=== PATIENT | male | born 1990 | race Caucasian/White ===

== ENCOUNTER 2020-05-23 16:22 | Outpatient (REF) | payer OTHER, SELFPAY | END 2020-05-23 16:23 | disposition home or self-care (01) | LOC: HO.LAB 16:22 | PROVIDERS: PCP Internal Medicine; Visit Provider Internal Medicine | DX: Z20.828 Contact with and (suspected) exposure to other viral communicable diseases (principal) | CPT/HCPCS: U0003 ==

== ENCOUNTER 2023-03-17 16:01 | Outpatient (AMB) | payer OTHER, SELFPAY ==
[2023-03-17 16:05] VITALS: BP 130/80; PULSE 80; TEMP 36.9; O2SAT 96; BMI 39.3
--- NOTE | 2023-03-17 16:05 | AM.OFFWIN_ITS ---
Intake Vital Signs 03/17/23 16:05 Height 5 ft 10 in Weight 274 lb BMI 39.3 BP 130/80 Blood Pressure Location Rt brachial Position Sitting Pulse 80 Pulse Source Pulse Oximeter Temp 98.4 F Temp Source Temporal Artery Scan Pulse Oximetry (%) 96 Oxygen Delivery Method Room Air Intake Visit Reasons: [employer] Bilateral Ear pain Intake Note: Patient here for bilat ear pain/pressure that started this morning. Patient Tobacco Use Status: Current everyday Tobacco user Allergies No Known Allergies Allergy (Unverified 03/18/23 14:48) Medication List - Last Reconciled 03/18/23 by Brian Wong MD azithromycin (Zithromax) take 500 mg today (day 1), then 250 mg for 4 days (days 2-5) PO nbgxuevd-[id number]-JG 3.5-10,000-1 mg/mL-unit/mL-% 4 drps otic (ears) Q8H Do you need a note to return to daycare/school/sports/work: No HPI [employer] Bilateral Ear pain HPI Details Patient presents for a sick visit. Reporting symptoms of sinus congestion, sore throat and difficulty swallowing. Low-grade fever. No family member is sick. No recent travel. Patient reports symptoms of malaise and fatigue. PFSH Social History Patient Tobacco Use Status: Current everyday Tobacco user Physical Exam Vital Signs: Last Vital Signs Temp 98.4 F 03/17/23 16:05 Pulse 80 03/17/23 16:05 BP 130/80 03/17/23 16:05 Pulse Ox 96 03/17/23 16:05 Oxygen Delivery Method Room Air 03/17/23 16:05 BMI result Body Mass Index 39.3 Const General: cooperative and healthy appearing Nutritional Appearance: well nourished Orientation/consciousness: patient oriented x3 Limitations: no limitations HEENT Other: Right ear: Tympanic membrane is red, ear canal is congested. Head: Yes normal to inspection Eyes General: appearance normal, both eyes and all related structures Neck Neck: Yes normal visual inspection Chest Chest palpation & inspection: normal palpation of entire chest wall Resp Effort & Inspection: normal respiratory effort Neuro General: patient oriented x3 Assessment & Plan Assessment & Plan (1) Right otitis media: Code(s): H66.91 - Otitis media, unspecified, right ear Plan: Antibiotics ordered. Increase fluid intake. Tylenol for aches and pains. If symptoms worsen, follow-up here for a recheck. Medications: New clxhiwaf-oewwnkxiw-VX 3.5-10,000-1 mg/mL-unit/mL-% 4 drps otic (ears) Q8H 10 mL 0RF azithromycin (Zithromax) take 500 mg today (day 1), then 250 mg for 4 days (days 2-5) PO 6 tabs 0RF Coding Level of Care Code Est Pt Level 3 (79988) Diagnoses Right otitis media H66.91
== END 2023-03-17 16:43 | disposition home or self-care (01) ==
PROVIDERS: PCP Internal Medicine; Visit Provider Internal Medicine
DX: H66.91 Otitis media, unspecified, right ear (principal)
CPT/HCPCS: 99213